=== PATIENT | male | born 1945 | race Caucasian/White ===

== ENCOUNTER → 2017-01-04 | Outpatient (CLI) | payer OTHER, MEDICARE ==
--- NOTE | 2017-01-04 15:01 | DIREP ---
PROCEDURE:XR BARIUM SWALLOW - MODIFIED COMPARISON:[facility], CR, XR BARIUM SWALLOW - MODIFIED, 09/07/2016, 07:19 AM. INDICATIONS:DYSPHAGIA DUE TO RECENT STROKE I69.391, 2.6 MINUTE FLUORO TECHNIQUE:Modified barium swallow was performed in conjunction with the speech pathologist. Various barium consistencies were administered. FINDINGS:Swallow was delayed. There was vallecular pooling of contrast with deep laryngeal penetration and eventual aspiration of honey thick and thin liquids. Cough reflex was elicited with partial clearing. CONCLUSION: 1. Deep laryngeal penetration with eventual aspiration of honey thick and thin liquids with appropriate cough reflex. 2. Please refer to the separate speech pathology report for further details and feeding guidelines. Dictated by: Ector Hudson M.D. On 01/04/2017 at 03:05 PM
== END | disposition home or self-care (01) ==
LOC: RAD 13:17
PROVIDERS: ATTEND Surgery
DX: I69.391 Dysphagia following cerebral infarction (principal)
CPT/HCPCS: 74230; 92611

== ENCOUNTER → 2017-02-26 | Outpatient (CLI) | payer MEDICARE ==
--- NOTE | 2017-02-26 12:25 | DIREP ---
PROCEDURE:XR BARIUM SWALLOW - MODIFIED COMPARISON:[facility], CR, XR BARIUM SWALLOW - MODIFIED, 01/04/2017, 02:01 PM. INDICATIONS: Dysphagia TECHNIQUE:A comprehensive fluoroscopic examination of swallowing was performed, utilizing a variety of barium consistencies. FINDINGS: ORAL PHASE:There is diminished oral control and transport of the bolus. PHARYNGEAL PHASE:Significant residue was seen in the valleculae and piriform sinuses. ASPIRATION:The patient aspirated with thin and thick liquid barium and nectar. Additionally, the patient aspirated multiple barium consistencies secondary to residue in the piriform sinuses. OTHER:Negative. FLUORO TIME: 3.1 minute CONCLUSION:There are findings consistent with severe oropharyngeal dysphagia with aspiration with all barium textures. Please also refer to speech pathology report. Dictated by: Marcel Boyd M.D. on 02/26/2017 at 12:31 PM
== END | disposition home or self-care (01) ==
LOC: RAD 10:37
PROVIDERS: ATTEND Surgery
DX: I69.391 Dysphagia following cerebral infarction (principal); R13.12 Dysphagia, oropharyngeal phase
CPT/HCPCS: 74230; G8996-CM; G8997-CI

== ENCOUNTER → 2017-05-28 | Outpatient (CLI) | payer MEDICARE ==
--- NOTE | 2017-05-28 14:40 | DIREP ---
PROCEDURE:XR BARIUM SWALLOW - MODIFIED COMPARISON:[facility], CR, XR BARIUM SWALLOW - MODIFIED, 02/26/2017, 11:15 AM. [facility], CR, XR BARIUM SWALLOW - MODIFIED, 01/04/2017, 02:01 PM. INDICATIONS: Dysphagia SECONDARY INDICATION: Choking TECHNIQUE:A comprehensive fluoroscopic examination of swallowing was performed, utilizing a variety of barium consistencies. FINDINGS: ORAL PHASE:Delayed deglutition. PHARYNGEAL PHASE:Delayed. ASPIRATION:Yes, with liquids. OTHER:Negative. FLUORO TIME: 2.3 minutes NUMBER OF IMAGES: 1 CONCLUSION:Please see speech pathology report. Dictated by: Pérez Hollins M.D. on 05/28/2017 at 02:54 PM
== END | disposition home or self-care (01) ==
LOC: RAD 13:03
PROVIDERS: ATTEND Surgery
DX: I69.391 Dysphagia following cerebral infarction (principal); R09.89 Other specified symptoms and signs involving the circulatory and respiratory systems
CPT/HCPCS: 74230; 92611; G8996-CL; G8997-CL; G8998-CL

== ENCOUNTER → 2017-09-13 | Outpatient (CLI) | payer MEDICARE ==
--- NOTE | 2017-09-13 15:31 | DIREP ---
PROCEDURE:XR BARIUM SWALLOW - MODIFIED COMPARISON:[facility], CR, XR BARIUM SWALLOW - MODIFIED, 05/28/2017, 01:34 PM. INDICATIONS: Dysphagia SECONDARY INDICATION: speech therapy TECHNIQUE:A comprehensive fluoroscopic examination of swallowing was performed, utilizing a variety of barium consistencies. FINDINGS: Aspiration identified. FLUORO TIME: 3.3 min NUMBER OF IMAGES: 2 CONCLUSION: 1. Aspiration identified. 2. Please refer to speech pathologist's detailed report. Dictated by: Iris Bower MD on 09/13/2017 at 03:32 PM
== END | disposition home or self-care (01) ==
LOC: RAD 10:08
PROVIDERS: ATTEND Surgery
DX: R13.10 Dysphagia, unspecified (principal); R47.89 Other speech disturbances
CPT/HCPCS: 74230; 92611; G8996; G8997; G8998